=== PATIENT | male | born 1960 | race Caucasian/White ===

== ENCOUNTER 2020-06-26 11:50 | Outpatient (CLI) | payer BC ==
--- NOTE | 2020-06-26 12:36 | RAD ---
PA AND LATERAL CHEST: Date: 06/26/2020 INDICATION: Weight loss with history of tobacco use. COMPARISON: Prior CT of chest dated 06/19/2019. FINDINGS: No suspicious pulmonary nodule, pleural effusion, or pneumothorax is evident. Heart size is normal ap pearing. No acute osseous abnormality is evident. IMPRESSION: No definite acute cardiopulmonary abnormality. POS: BH
== END 2020-06-26 11:51 | disposition home or self-care (01) ==
LOC: BICRAD 11:50
PROVIDERS: ATTEND Physician Assistant
DX: R63.4 Abnormal weight loss (principal); Z87.891 Personal history of nicotine dependence
CPT/HCPCS: 36415; 71046; 80053; 80061; 83036; 84443; 85025

== ENCOUNTER 2020-07-22 08:58 | Day surgery (SDC) | payer BC ==
[2020-07-21 16:40] VITALS: BMI 31.4
[2020-07-22] MEDS ORDERED: Sodium Bicarbonate 2.5 MEQ/5 ML VIAL ONE (10:01)
[2020-07-22] MEDS ORDERED: Midazolam HCl 2 mg/2 ml Vial ONE (10:01)
[2020-07-22] MEDS ORDERED: Fentanyl 100 MCG/2 ML VIAL ONE (10:01)
[2020-07-22 12:11] VITALS: BP 128/76; TEMP 98.2
--- NOTE | 2020-07-22 12:57 | CT ---
CT-guided bone marrow biopsy and aspiration: DATE: 07/22/2020 HISTORY: 60-year-old male with polycythemia vera TECHNIQUE: Signed informed consent obtained. Patient placed prone on CT table. Skin of lower back prepared and d raped in usual sterile fashion. 25-gauge needle used to apply buffered lidocaine superficially, then at the periosteum of the right PSIS. 11-gauge [employer] bone marrow biopsy needle with tro car advanced with distal tip slightly deep to the posterior cortical surface of the PSIS. Trocar removed. Marrow aspiration performed with 2 syringes, 2 mL in first syringe and 2 mL in second syring e, both of which were given to nanotechnician from laboratory. Next, the electric power escort car driver was connected to the biopsy needle. The entire power escort car driver and 11-gauge needle set was advanced and retr acted, yielding a bone marrow core tissue sample, which was also given to the laboratory inspector. Compression was held at the puncture site until hemostasis achieved. Patient tolerated pr ocedure well. No complications. IMPRESSION: 1. Difficulty in aspirating bone marrow fluid: Only total of 4 mL aspirated. 2. Successful CT-guided bone marrow biopsy .
--- NOTE | 2020-07-23 10:52 | CT ---
CT-guided bone marrow biopsy and aspiration: DATE: 07/22/2020 HISTORY: 60-year-old male with polycythemia vera TECHNIQUE: Signed informed consent obtained. Patient placed prone on CT table. Skin of lower back prepared and d raped in usual sterile fashion. 25-gauge needle used to apply buffered lidocaine superficially, then at the periosteum of the right PSIS. 11-gauge [employer] bone marrow biopsy needle with tro car advanced with distal tip slightly deep to the posterior cortical surface of the PSIS. Trocar removed. Marrow aspiration performed with 2 syringes, 2 mL in first syringe and 2 mL in second syring e, both of which were given to guitar technician from laboratory. Next, the electric power stud driver was connected to the biopsy needle. The entire power stud driver and 11-gauge needle set was advanced and retr acted, yielding a bone marrow core tissue sample, which was also given to the ear mold laboratory technician. Compression was held at the puncture site until hemostasis achieved. Patient tolerated pr ocedure well. No complications. IMPRESSION: 1. Difficulty in aspirating bone marrow fluid: Only total of 4 mL aspirated. 2. Successful CT-guided bone marrow biopsy . Transcribed Date/Time: 07/23/2020 10:52 AM
== END 2020-07-22 12:00 | disposition home or self-care (01) ==
LOC: RAD 08:58
PROVIDERS: ATTEND Internal Medicine Hematology & Oncology
PROC: 07DR3ZX Extraction of Iliac Bone Marrow, Percutaneous Approach, Diagnostic (ICD-10-PCS; principal; 2020-07-22)
DX: D45 Polycythemia vera (principal); F17.290 Nicotine dependence, other tobacco product, uncomplicated; I10 Essential (primary) hypertension; Z79.82 Long term (current) use of aspirin; Z79.899 Other long term (current) drug therapy
CPT/HCPCS: 20225; 77002; 85097; 88184; 88237; 88305; 88311; 88313; J2250; J3010